=== PATIENT | male | born 1995 | race African-American/Black ===

== ENCOUNTER 2023-10-26 09:42 | Emergency (ER) | payer OTHER ==
[~2023-10-26] VITALS: Ht 175.3 cm; Wt 82.0 kg
[2023-10-26 09:45] VITALS: O2SAT 100
[2023-10-26] MEDS ORDERED: IBUPROFEN 600MG TABLET PO ONE (10:00)
[2023-10-26 10:35] LABS: BASOPHILS % 1.6 % (0.0-2.0); EOSINOPHILS % 2.7 % (0.0-5.0); HEMATOCRIT. 38.8 % (42.0-52.0); HEMOGLOBIN. 12.3 g/dL (14.0-18.0); MEAN CORPUSCULAR HEMOGLOBIN 28.7 pg (28.0-32.0); MEAN CORPUSCULAR HGB CONC 31.6 g/dL (31.0-37.0); MEAN CORPUSCULAR VOLUME 90.9 fL (80.0-94.0); MEAN PLATELET VOLUME 10.3 fl (7.4-10.4); MONOCYTES % 11.5 % (2.0-8.0); NEUTROPHILS % 39.2 % (40.0-76.0); PLATELET 165 x1000/uL (130-400); RED BLOOD CELL COUNT 4.27 mill/uL (4.7-6.1); RED CELL DISTRIBUTION WIDTH 13.2 % (11.6-14.6); WHITE BLOOD COUNT 3.5 x1000/uL (4.5-11.0)
[2023-10-26 11:03] LABS: CALCIUM 9.6 mg/dL (8.7-10.4); CARBON DIOXIDE 30 mEq/L (21-32); CHLORIDE 103 mEq/L (98-107); CREATININE 0.9 mg/dL (0.6-1.3); GLUCOSE 70 mg/dL (70-105); POTASSIUM 4.6 mEq/L (3.5-5.1); SODIUM 140 mEq/L (136-145); TROPONIN I HIGH SENSITIVITY 15 ng/L (3.0-53); UREA NITROGEN BLOOD 8 mg/dL (9-23)
[2023-10-26 14:43] VITALS: BP 114/80; PULSE 65; RESP 17; TEMP 98.3
== END 2023-10-26 14:44 | disposition home or self-care (01) ==
LOC: ER 09:42
DX: R07.89 Other chest pain (principal)
CPT/HCPCS: 36415; 71046; 80048; 84484; 85025; 93005; 99285